=== PATIENT | male | born 1985 | race Two or more races ===

== ENCOUNTER 2022-11-16 05:19 | Inpatient (IN) | payer MEDICAID ==
[~2022-11-16] VITALS: Ht 165.1 cm; Wt 57.5 kg
[2022-11-16] VITALS (29 sets, daily range): BP systolic 104–151; BP diastolic 63–98; PULSE 95–131; RESP 11–32; TEMP 97.1–99.2; O2SAT 96–98
[2022-11-16] MEDS: NOREPINEPHRINE 8 MG/250ML KIT 250 ML IV SCH (05:30)
[2022-11-16] MEDS ORDERED: ALBUMIN 25% 100 ML IV ONE (05:30)
[2022-11-16] MEDS ORDERED: SODIUM CHLORIDE 0.9% 2,000 ML IV ONE (05:30)
[2022-11-16 06:46] LABS: Basophils # (auto) 0 10 ^3/uL (0-0.2); Eosinophils # (auto) 0 10 ^3/uL (0-0.8); Hematocrit 40.2 % (41.0-53.0); Hemoglobin 13.3 g/dL (13.5-17.5); Lymphocytes # (auto) 0.2 10 ^3/uL (0.4-5.4); Lymphocytes % (auto) 3.1 % (10.0-50.0); Mean Corpuscular Hemoglobin 31.5 pg (28.0-32.0); Mean Corpuscular Volume 95.5 fL (80.0-100.0); Monocytes # (auto) 0.5 10 ^3/uL (0-1.3); Monocytes % (auto) 7.5 % (0.0-12.0); Neutrophils # (auto) 6.3 10 ^3/uL (1.6-8.6); Neutrophils % (auto) 89.4 % (37.0-80.0); Nucleated Red Blood Cells % 0.1 %; Red Blood Cells 4.21 10^6/uL (4.5-5.90); Red Cell Distribution Width 15.9 % (11.8-14.3); White Blood Cell 7.1 10^3/uL (4.4-10.8)
[2022-11-16 07:00] LABS: Albumin 4.3 g/dL (3.4-5.0); BUN/Creatinine Ratio 34.5 (10.0-20.0); Calcium 8.9 mg/dL (8.5-10.1); Magnesium 2.9 mg/dL (1.6-2.6); Potassium 3.8 mmol/L (3.5-5.1)
[2022-11-16 07:02] LABS: Lactic Acid w/Reflex 8.1 mmol/L (0.4-2.0)
[2022-11-16 07:03] LABS: Bilirubin, Total 3.6 mg/dL (0.2-1.0); Total Protein 7.4 g/dL (6.4-8.2)
[2022-11-16 09:22] LABS: Urine Bacteria FEW /hpf (None Seen); Urine Blood 1+ /uL (Negative); Urine Clarity HAZY (Clear); Urine Color Yellow (Yellow); Urine Hyaline Cast MANY /lpf (0 - 2); Urine Mucus FEW (None Seen); Urine Protein, UAD 2+ (Negative); Urine WBC 5 /hpf (0 - 3); Urine pH 5.5 (5.0-8.0)
[2022-11-16] MEDS ORDERED: PANTOPRAZOLE 40mg/50ML NS AE 50 ML IV ONE (10:15)
[2022-11-16] MEDS ORDERED: PANTOPRAZOLE 80 MG in SODIUM CHL 0.9% 100 ML IV ONE (10:15)
[2022-11-16] MEDS ORDERED: PROMETHAZINE HCL 25 MG/ML 1ML IV ONE (10:15)
[2022-11-16] MEDS ORDERED: SODIUM CHLORIDE 0.9% 1,000 ML IV ONE (10:45)
[2022-11-16] MEDS ORDERED: MORPHINE SULFATE INJ 2 MG/ml SYRG IV PRN (10:45)
[2022-11-16] MEDS ORDERED: LORazepam 2MG/ML-1ML VIAL IV PRN (10:45)
[2022-11-16] MEDS ORDERED: NITROGLYCERIN 0.4 MG SL TAB SL PRN (10:45)
[2022-11-16] MEDS ORDERED: ALBUTEROL SULF 2.5 MG/0.5ML(0.5%) NEB SOLN NEB PRN (11:15)
[2022-11-16] MEDS ORDERED: IPRATROPIUM BROM 0.5 MG/2.5ML INH SOL NEB PRN (11:15)
[2022-11-16 11:46] LABS: Basophils # (auto) 0 10 ^3/uL (0-0.2); Basophils % (auto) 0.1 % (0.0-2.0); Eosinophils # (auto) 0 10 ^3/uL (0-0.8); Hemoglobin 10.3 g/dL (13.5-17.5); Lymphocytes # (auto) 0.3 10 ^3/uL (0.4-5.4); Lymphocytes % (auto) 5.1 % (10.0-50.0); Mean Corpuscular Hemoglobin 31.8 pg (28.0-32.0); Monocytes # (auto) 0.5 10 ^3/uL (0-1.3); Neutrophils # (auto) 4.9 10 ^3/uL (1.6-8.6); White Blood Cell 5.7 10^3/uL (4.4-10.8)
[2022-11-16 11:49] LABS: Hematocrit 30.3 % (41.0-53.0); Mean Corpuscular Hgb Conc. 33.8 g/dL (32.0-36.0); Monocytes % (auto) 9.2 % (0.0-12.0); Neutrophils % (auto) 85.6 % (37.0-80.0); Red Blood Cells 3.22 10^6/uL (4.5-5.90); Red Cell Distribution Width 15.7 % (11.8-14.3)
[2022-11-16] MEDS: SODIUM CHLORIDE 0.9% 1,000 ML IV SCH ×3 (12:05→23:33)
[2022-11-16] MEDS: PANTOPRAZOLE 40mg/50ML NS AE 50 ML IV SCH ×3 (12:05→20:30)
[2022-11-16 12:09] LABS: INR 1.55 (0.9-1.15); Prothrombin Time 15.8 sec (9.3-11.8)
[2022-11-16 12:19] LABS: Amphetamine Screen, Urine NEGATIVE (NEGATIVE); Barbiturate Scree,Urine NEGATIVE (NEGATIVE); Benzodiazephine Screen, Urine NEGATIVE (NEGATIVE); Cannabinoid Screen, Urine NEGATIVE (NEGATIVE); Cocaine Screen, Urine NEGATIVE (NEGATIVE); Opiate Scree,Urine NEGATIVE (NEGATIVE); Phencyclidine Screen, Urine NEGATIVE (NEGATIVE)
[2022-11-16] MEDS: FOLIC ACID 1 MG, MULTIPLE VITAMIN 10 ML, THIAMINE INJ 100 MG in SODIUM CHLORIDE 0.9% 1,... INJ SCH (13:22)
[2022-11-16 16:06] LABS: Albumin 3.6 g/dL (3.4-5.0); Calcium 7.5 mg/dL (8.5-10.1); Potassium 3.5 mmol/L (3.5-5.1)
[2022-11-16 16:08] LABS: BUN/Creatinine Ratio 51.5 (10.0-20.0); Bilirubin, Total 3.5 mg/dL (0.2-1.0); Total Protein 5.9 g/dL (6.4-8.2)
[2022-11-16] MEDS ORDERED: MORPHINE SULFATE INJ 2 MG/ml SYRG IV ONE (21:30)
[2022-11-17] VITALS (52 sets, daily range): BP systolic 124–146; BP diastolic 71–90; PULSE 66–105; RESP 11–22; TEMP 98.3–99.1; O2SAT 93–99
[2022-11-17] MEDS: PANTOPRAZOLE 40mg/50ML NS AE 50 ML IV SCH ×5 (01:11→22:12)
[2022-11-17] MEDS: SODIUM CHLORIDE 0.9% 1,000 ML IV SCH ×5 (02:00→22:12)
[2022-11-17] MEDS ORDERED: VANCOMYCIN PER PHARMACY 0 MG IV SCH (04:00)
[2022-11-17] MEDS ORDERED: VANCOMYCIN 1GM/250ML 250 ML IV ONE (05:00)
[2022-11-17 05:09] LABS: Albumin 3.2 g/dL (3.4-5.0); Calcium 7.3 mg/dL (8.5-10.1)
[2022-11-17 05:14] LABS: BUN/Creatinine Ratio 33.3 (10.0-20.0); Bilirubin, Total 5.6 mg/dL (0.2-1.0); Total Protein 5.4 g/dL (6.4-8.2)
[2022-11-17 05:27] LABS: Basophils # (auto) 0 10 ^3/uL (0-0.2); Basophils % (auto) 0.2 % (0.0-2.0); Eosinophils # (auto) 0 10 ^3/uL (0-0.8); Hemoglobin 8.4 g/dL (13.5-17.5); Lymphocytes # (auto) 0.5 10 ^3/uL (0.4-5.4); Mean Corpuscular Volume 94.3 fL (80.0-100.0); Neutrophils # (auto) 2.9 10 ^3/uL (1.6-8.6)
[2022-11-17 05:30] LABS: Eosinophils % (auto) 0.2 % (0.0-7.0); Hematocrit 24.4 % (41.0-53.0); Lymphocytes % (auto) 13.8 % (10.0-50.0); Mean Corpuscular Hemoglobin 32.4 pg (28.0-32.0); Mean Corpuscular Hgb Conc. 34.4 g/dL (32.0-36.0); Monocytes # (auto) 0.2 10 ^3/uL (0-1.3); Monocytes % (auto) 6.8 % (0.0-12.0); Nucleated Red Blood Cells % 0.1 %; Red Blood Cells 2.59 10^6/uL (4.5-5.90); Red Cell Distribution Width 15.9 % (11.8-14.3); White Blood Cell 3.6 10^3/uL (4.4-10.8)
[2022-11-17] MEDS: NOREPINEPHRINE 8 MG/250ML KIT 250 ML IV SCH (05:30)
[2022-11-17 05:33] LABS: INR 1.51 (0.9-1.15); Prothrombin Time 15.4 sec (9.3-11.8)
[2022-11-17 06:10] LABS: Potassium 2.9 mmol/L (3.5-5.1)
[2022-11-17] MEDS ORDERED: POTASSIUM CHL 20MEQ/100ML 100 ML IV ONE ×4 (06:42→14:30)
[2022-11-17] MEDS: SUCRALFATE 1 GM/10 ML ORAL SUSP PO SCH ×2 (06:55→16:58)
[2022-11-17] MEDS ORDERED: THIAMINE HCL 100 MG TAB PO SCH (10:00)
[2022-11-17 10:34] LABS: Platelet Estimate Decreased; RBC Morphology Normal
[2022-11-17] MEDS: FOLIC ACID 1 MG, MULTIPLE VITAMIN 10 ML, THIAMINE INJ 100 MG in SODIUM CHLORIDE 0.9% 1,... INJ SCH (12:25)
[2022-11-17] MEDS ORDERED: VANCOMYCIN 750mg/250ml 250 ML IV SCH (13:00)
[2022-11-17] MEDS ORDERED: fentaNYL CITRATE 100 MCG/2 ML VL ONE (14:19)
[2022-11-17] MEDS ORDERED: MIDAZOLAM HCL 2MG/2ML 2ml VIAL (1mg/ml) ONE (14:19)
[2022-11-17] MEDS ORDERED: PHYTONADIONE (VIT K)10 MG/ML 1ML VIAL SUBCUT ONE ×2 (14:30→17:00)
[2022-11-17] MEDS ORDERED: THIAMINE 100mg/ml INJ (200mg/2ml VIAL) IV ONE (14:30)
[2022-11-17] MEDS ORDERED: PROPOFOL 10 MG/ML 20 ML IV ONE (14:41)
[2022-11-17] MEDS ORDERED: LIDOCAINE 2% (LOCAL ANESTH.) PF 5ml SDV ONE (14:41)
[2022-11-17] MEDS: cefTRIAXone 1GM/50ML D5W 50 ML IV SCH (15:38)
[2022-11-17 17:09] LABS: Calcium 7.6 mg/dL (8.5-10.1); Potassium 3.3 mmol/L (3.5-5.1)
[2022-11-17 17:11] LABS: BUN/Creatinine Ratio 28.6 (10.0-20.0)
[2022-11-17 18:09] LABS: Hematocrit 26.1 % (41.0-53.0); Hemoglobin 8.8 g/dL (13.5-17.5)
[2022-11-18] VITALS (25 sets, daily range): BP systolic 114–148; BP diastolic 64–94; PULSE 71–124; RESP 15–28; TEMP 98.6–99.3; O2SAT 96–99
[2022-11-18] MEDS: PANTOPRAZOLE 40mg/50ML NS AE 50 ML IV SCH ×2 (03:01→08:22)
[2022-11-18 05:20] LABS: Basophils # (auto) 0 10 ^3/uL (0-0.2); Basophils % (auto) 0.2 % (0.0-2.0); Eosinophils # (auto) 0 10 ^3/uL (0-0.8); Hemoglobin 8.3 g/dL (13.5-17.5); Lymphocytes # (auto) 0.7 10 ^3/uL (0.4-5.4); Lymphocytes % (auto) 18.6 % (10.0-50.0); Mean Corpuscular Hgb Conc. 34.6 g/dL (32.0-36.0); Monocytes # (auto) 0.4 10 ^3/uL (0-1.3); Neutrophils # (auto) 2.5 10 ^3/uL (1.6-8.6); Nucleated Red Blood Cells % 0.1 %; Red Blood Cells 2.55 10^6/uL (4.5-5.90); White Blood Cell 3.7 10^3/uL (4.4-10.8)
[2022-11-18 05:22] LABS: Eosinophils % (auto) 0.7 % (0.0-7.0); Mean Corpuscular Hemoglobin 32.5 pg (28.0-32.0); Mean Corpuscular Volume 94.1 fL (80.0-100.0); Monocytes % (auto) 11.8 % (0.0-12.0); Neutrophils % (auto) 68.7 % (37.0-80.0); Red Cell Distribution Width 15.2 % (11.8-14.3)
[2022-11-18 05:25] LABS: Albumin 2.8 g/dL (3.4-5.0); Calcium 7.5 mg/dL (8.5-10.1)
[2022-11-18 05:28] LABS: Bilirubin, Total 6.2 mg/dL (0.2-1.0)
[2022-11-18] MEDS: NOREPINEPHRINE 8 MG/250ML KIT 250 ML IV SCH (05:30)
[2022-11-18 05:33] LABS: INR 1.45 (0.9-1.15); Prothrombin Time 14.9 sec (9.3-11.8)
[2022-11-18 06:32] LABS: Potassium 2.7 mmol/L (3.5-5.1)
[2022-11-18] MEDS: SUCRALFATE 1 GM/10 ML ORAL SUSP PO SCH ×3 (06:35→17:18)
[2022-11-18] MEDS ORDERED: POTASSIUM CHL 20 Meq TABLET PO ONE ×2 (07:30→21:15)
[2022-11-18] MEDS: cefTRIAXone 1GM/50ML D5W 50 ML IV SCH (09:35)
[2022-11-18 09:47] LABS: Hepatitis B Surface Antibody Negative (Negative)
[2022-11-18] MEDS: PANTOPRAZOLE 40 MG/10 ML VIAL INJ IV SCH ×2 (10:00→21:54)
[2022-11-18] MEDS ORDERED: THIAMINE 100mg/ml INJ (200mg/2ml VIAL) IV SCH (10:00)
[2022-11-18 10:18] LABS: Hepatitis A Total Antibody Positive (Negative)
[2022-11-18] MEDS ORDERED: POTASSIUM CHLORIDE 40 MEQ, LIDOCAINE 1% (LOCAL ANESTH.) 4 ML in SODIUM CHL 0.9% 250 ML IV ONE (10:30)
[2022-11-18 11:37] LABS: Hepatitis B Surface Antigen Negative (Negative)
[2022-11-18 11:38] LABS: Hepatitis B Core Total AB Negative (Negative); Hepatitis C Antibody Negative (Negative)
[2022-11-18] MEDS: SODIUM CHLORIDE 0.9% 1,000 ML IV SCH (12:12)
[2022-11-18] MEDS: FOLIC ACID 1 MG, MULTIPLE VITAMIN 10 ML, THIAMINE INJ 100 MG in SODIUM CHLORIDE 0.9% 1,... INJ SCH (12:53)
[2022-11-18] MEDS: guaiFENesin 200 MG/10 ML UD PO PRN ×2 (17:18→23:44)
[2022-11-18 18:57] LABS: Albumin 2.7 g/dL (3.4-5.0); BUN/Creatinine Ratio 9.3 (10.0-20.0); Bilirubin, Total 5.3 mg/dL (0.2-1.0); Calcium 7.2 mg/dL (8.5-10.1); Total Protein 4.7 g/dL (6.4-8.2)
[2022-11-18 19:24] LABS: Potassium 2.9 mmol/L (3.5-5.1)
[2022-11-18] MEDS ORDERED: POTASSIUM CHL 20MEQ/100ML 100 ML IV ONE (21:15)
[2022-11-19] VITALS (18 sets, daily range): BP systolic 111–141; BP diastolic 66–92; PULSE 76–136; RESP 15–25; TEMP 98.4–98.9; O2SAT 97–100
[2022-11-19] MEDS: SODIUM CHLORIDE 0.9% 1,000 ML IV SCH (01:10)
[2022-11-19 05:15] LABS: Albumin 2.8 g/dL (3.4-5.0); Calcium 7.1 mg/dL (8.5-10.1); Potassium 3.3 mmol/L (3.5-5.1)
[2022-11-19 05:18] LABS: BUN/Creatinine Ratio 5.7 (10.0-20.0); Bilirubin, Total 4.8 mg/dL (0.2-1.0); Total Protein 4.9 g/dL (6.4-8.2)
[2022-11-19] MEDS: NOREPINEPHRINE 8 MG/250ML KIT 250 ML IV SCH (05:30)
[2022-11-19 05:35] LABS: Basophils # (auto) 0 10 ^3/uL (0-0.2); Hematocrit 23.7 % (41.0-53.0); Hemoglobin 8.2 g/dL (13.5-17.5); Lymphocytes # (auto) 0.6 10 ^3/uL (0.4-5.4); Monocytes # (auto) 0.5 10 ^3/uL (0-1.3); Nucleated Red Blood Cells % 0.1 %
[2022-11-19 05:38] LABS: Basophils % (auto) 0.2 % (0.0-2.0); Eosinophils # (auto) 0.1 10 ^3/uL (0-0.8); Eosinophils % (auto) 1.7 % (0.0-7.0); Mean Corpuscular Hgb Conc. 34.9 g/dL (32.0-36.0); Mean Corpuscular Volume 94.6 fL (80.0-100.0); Monocytes % (auto) 14.9 % (0.0-12.0); Neutrophils % (auto) 63.2 % (37.0-80.0); Red Cell Distribution Width 14.9 % (11.8-14.3); White Blood Cell 3.2 10^3/uL (4.4-10.8)
[2022-11-19 05:44] LABS: INR 1.32 (0.9-1.15); Partial Thromboplastin Time 28.8 SEC (24.5-34.5); Prothrombin Time 13.6 sec (9.3-11.8)
[2022-11-19] MEDS: SUCRALFATE 1 GM/10 ML ORAL SUSP PO SCH ×3 (06:45→16:32)
[2022-11-19] MEDS: PANTOPRAZOLE 40 MG/10 ML VIAL INJ IV SCH ×2 (08:19→21:52)
[2022-11-19] MEDS: cefTRIAXone 1GM/50ML D5W 50 ML IV SCH (08:19)
[2022-11-19] MEDS ORDERED: POTASSIUM CHL 20 Meq TABLET PO ONE ×2 (10:30→22:00)
[2022-11-19] MEDS: guaiFENesin 200 MG/10 ML UD PO PRN (15:53)
[2022-11-20] VITALS (7 sets, daily range): BP systolic 109–128; BP diastolic 72–81; PULSE 70–98; RESP 17–19; TEMP 98.1–98.4; O2SAT 98–100
[2022-11-20 06:19] LABS: Hematocrit 24.3 % (41.0-53.0); Hemoglobin 8.5 g/dL (13.5-17.5); Mean Corpuscular Hemoglobin 32.6 pg (28.0-32.0); Mean Corpuscular Hgb Conc. 34.8 g/dL (32.0-36.0); Mean Corpuscular Volume 93.5 fL (80.0-100.0); Red Cell Distribution Width 15.2 % (11.8-14.3); White Blood Cell 3.1 10^3/uL (4.4-10.8)
[2022-11-20 06:25] LABS: INR 1.31 (0.9-1.15); Partial Thromboplastin Time 26.8 SEC (24.5-34.5); Prothrombin Time 13.5 sec (9.3-11.8)
[2022-11-20 06:31] LABS: Potassium 3.1 mmol/L (3.5-5.1)
[2022-11-20] MEDS: SUCRALFATE 1 GM/10 ML ORAL SUSP PO SCH ×4 (06:35→21:58)
[2022-11-20 06:47] LABS: BUN/Creatinine Ratio 9.4 (10.0-20.0); Bilirubin, Total 3.6 mg/dL (0.2-1.0); Calcium 8.2 mg/dL (8.5-10.1); Total Protein 5.4 g/dL (6.4-8.2)
[2022-11-20 06:53] LABS: Basophils % (manual) 0 (0.0-2.0); Blast Cells 0; Myelocytes % 0; Promyelocytes % 0; Reactive Lymphocytes 0
[2022-11-20] MEDS: cefTRIAXone 1GM/50ML D5W 50 ML IV SCH (08:25)
[2022-11-20] MEDS: PANTOPRAZOLE 40 MG/10 ML VIAL INJ IV SCH ×2 (08:25→21:58)
[2022-11-20] MEDS ORDERED: POTASSIUM EFFERVESENT TAB 25 MEQ PO ONE (10:00)
[2022-11-20 11:18] LABS: Band Neutrophils % (manual) 6; Eosinophils % (manual) 1 (0-7); Lymphocytes % (manual) 20 (10.0-50.0); Metamyelocytes % 1; Monocytes % (manual) 12 (0-12); Platelet Estimate Decreased
[2022-11-20 15:19] LABS: Calcium 8.2 mg/dL (8.5-10.1); Potassium 3.7 mmol/L (3.5-5.1)
[2022-11-20 15:21] LABS: BUN/Creatinine Ratio 4.9 (10.0-20.0)
[2022-11-20] MEDS ORDERED: MAGNESIUM SULFATE 1GM/100ML 100 ML IV ONE (17:00)
[2022-11-20] MEDS ORDERED: DAKINS QUARTER STR 0.125% (NaHypochlorite) 473 ML TOPICAL SOL TOP SCH (22:00)
[2022-11-21 05:00] VITALS: BP 106/61; PULSE 90; RESP 18; TEMP 98.8; O2SAT 100
[2022-11-21] MEDS: SUCRALFATE 1 GM/10 ML ORAL SUSP PO SCH ×3 (06:35→17:43)
[2022-11-21 07:09] LABS: INR 1.22 (0.9-1.15); Prothrombin Time 12.6 sec (9.3-11.8)
[2022-11-21 07:14] LABS: White Blood Cell 3.5 10^3/uL (4.4-10.8)
[2022-11-21 07:18] LABS: Hematocrit 23.7 % (41.0-53.0); Hemoglobin 8.2 g/dL (13.5-17.5); Mean Corpuscular Hgb Conc. 34.7 g/dL (32.0-36.0); Mean Corpuscular Volume 94.9 fL (80.0-100.0)
[2022-11-21 07:46] LABS: Potassium 3.3 mmol/L (3.5-5.1)
[2022-11-21 07:51] LABS: Albumin 3.3 g/dL (3.4-5.0); BUN/Creatinine Ratio 9.7 (10.0-20.0); Calcium 8.2 mg/dL (8.5-10.1)
[2022-11-21 07:54] LABS: Bilirubin, Total 2.8 mg/dL (0.2-1.0)
[2022-11-21 08:00] VITALS: PULSE 69; PULSE 95; RESP 20; O2SAT 100
[2022-11-21 08:29] LABS: Band Neutrophils % (manual) 0; Basophils % (manual) 0 (0.0-2.0); Blast Cells 0; Metamyelocytes % 0; Myelocytes % 0; Promyelocytes % 0
[2022-11-21 09:08] VITALS: BP 121/68; PULSE 95; RESP 21; TEMP 98; O2SAT 100
[2022-11-21] MEDS: cefTRIAXone 1GM/50ML D5W 50 ML IV SCH (09:24)
[2022-11-21] MEDS: PANTOPRAZOLE 40 MG/10 ML VIAL INJ IV SCH (09:24)
[2022-11-21 11:59] LABS: Eosinophils % (manual) 4 (0-7); Lymphocytes % (manual) 23 (10.0-50.0); Monocytes % (manual) 17 (0-12); Reactive Lymphocytes 1
[2022-11-21 12:01] LABS: Platelet Estimate Adequate
[2022-11-21 12:02] LABS: Anisocytosis Moderate
[2022-11-21] MEDS ORDERED: POTASSIUM CHL 20 Meq TABLET PO ONE (12:30)
[2022-11-21 13:00] VITALS: BP 114/73; PULSE 80; RESP 21; TEMP 98; O2SAT 100
[2022-11-21] MEDS ORDERED: SUCR1SUS26 PO (15:51)
[2022-11-21] MEDS ORDERED: PANT40T PO (15:51)
[2022-11-21 16:31] VITALS: BP 106/61; PULSE 98; RESP 22; TEMP 98; O2SAT 98
[2022-11-21 16:36] VITALS: BP 106/61; PULSE 98; RESP 22; TEMP 98; O2SAT 100
[2022-11-21] MEDS ORDERED: PANTOPRAZOLE 40 MG TAB PO ONE (18:15)
== END 2022-11-21 19:05 | disposition home or self-care (01) | DRG 243 ==
LOC: ER 05:19 → TELE 10:50 → DOU IN ICU 17:49 → TELE-EAST 11-19 20:36
PROVIDERS: ADMIT Internal Medicine; ATTEND Student in an Organized Health Care Education/Training Program
PROC: 0DB68ZX Excision of Stomach, Via Natural or Artificial Opening Endoscopic, Diagnostic (ICD-10-PCS; 2022-11-17)
PROC: 0DB58ZX Excision of Esophagus, Via Natural or Artificial Opening Endoscopic, Diagnostic (ICD-10-PCS; 2022-11-17)
PROC: 0DB98ZX Excision of Duodenum, Via Natural or Artificial Opening Endoscopic, Diagnostic (ICD-10-PCS; principal; 2022-11-17 14:17)
DX: K21.01 Gastro-esophageal reflux disease with esophagitis, with bleeding (principal); R57.8 Other shock; K72.00 Acute and subacute hepatic failure without coma; G92.8 Other toxic encephalopathy; D61.818 Other pancytopenia; K86.3 Pseudocyst of pancreas; R65.10 Systemic inflammatory response syndrome (SIRS) of non-infectious origin without acute organ dysfunction; K22.11 Ulcer of esophagus with bleeding; E87.20 Acidosis, unspecified; N17.9 Acute kidney failure, unspecified; K29.71 Gastritis, unspecified, with bleeding; K29.81 Duodenitis with bleeding; D62 Acute posthemorrhagic anemia; R62.7 Adult failure to thrive; E86.0 Dehydration; K76.0 Fatty (change of) liver, not elsewhere classified; F10.129 Alcohol abuse with intoxication, unspecified; Y90.9 Presence of alcohol in blood, level not specified; E87.6 Hypokalemia; F32.A Depression, unspecified; K80.20 Calculus of gallbladder without cholecystitis without obstruction; K86.9 Disease of pancreas, unspecified; Z87.891 Personal history of nicotine dependence; Z82.5 Family history of asthma and other chronic lower respiratory diseases; Z68.21 Body mass index [BMI] 21.0-21.9, adult; K44.9 Diaphragmatic hernia without obstruction or gangrene; Z53.1 Procedure and treatment not carried out because of patient's decision for reasons of belief and group pressure
CPT/HCPCS: 36415; 70450; 71045; 71250; 72125; 74176; 74181; 76705; 78226; 80048; 80053; 80061; 80307; 81001; 82140; 83036; 83605; 83690; 83735; 83880; 84132; 84443; 84484; 85007; 85014; 85018; 85025; 85027; 85045; 85610; 85730; 86704; 86706; 86708; 86803; 86850; 86900; 86901; 87040; 87077; 87081; 87340; 93005; 96361; 96365; 96367; 96375; 99291; C9113; G0378; J0696; J2001; J2250; J2704; J3480; P9047